=== PATIENT | male | born 1960 | race Hispanic/Latino ===

== ENCOUNTER 2018-11-11 19:56 | Emergency (ER) | payer BC, MEDICARE ==
[~2018-11-11] VITALS: Ht 177.8 cm; Wt 120.2 kg
[~2018-11-11 19:56] MED LIST: ACCUNEB0.63 MG/3 NEB; ACIPHEX20 MG; BICALUTAMIDE50 MG; COREG12.5 MG PO; COUMADIN10 MG; LOSARTAN POTAS100 MG; LOVENOX100 MG/ML; PROVENTIL HFA6.7 GM INH; ZOCOR40 MG
--- NOTE | 2018-11-11 21:01 | Diagnostic Imaging Report ---
EXAMINATION: CHEST 2 VIEWS INDICATION: ^SOB, H/O SARCOIDOSIS AND CHF COMPARISON: None FINDINGS: PA and lateral views TUBES and LINES: Median sternotomy wires and aortic valve prosthesis. LUNGS: Lungs are moderately inflated. Perihilar and show opacities with punctate calcified granulomas, consistent with known sarcoidosis. Elevation of the right minor fissure, related to scarring. Pulmonary venous congestion. PLEURA: No pleural effusion or pneumothorax. HEART AND MEDIASTINUM: Cardiac size is moderately enlarged. There are atherosclerotic calcifications within the tortuous aorta. BONES AND SOFT TISSUES: No acute osseous lesion. Soft tissues are unremarkable. UPPER ABDOMEN: No free air under the diaphragm. IMPRESSION: Moderate cardiomegaly. Chronic lung changes related to sarcoidosis. Central pulmonary venous congestion. Signed by: Dr. Humberto Gómez M.D. on 11/11/2018 8:57 PM
[2018-11-11] MEDS ORDERED: FUROSEMIDE40 MG PO (21:42)
[2018-11-11] MEDS ORDERED: BUPROPION XL150 MG PO (21:42)
[2018-11-11] MEDS ORDERED: DIGOXIN125 MCG PO (21:42)
[2018-11-11] MEDS ORDERED: ASPIR 8181 MG PO (21:42)
[2018-11-11] MEDS ORDERED: RANITIDINE HCL150 MG PO (21:42)
[2018-11-11] MEDS ORDERED: PREDNISONE10 MG PO (21:42)
[2018-11-11] MEDS ORDERED: WARFARIN SODIU2.5 MG PO ×2 (21:42)
[2018-11-11] MEDS ORDERED: LOSARTAN POTASS50 MG PO (21:42)
--- NOTE | 2018-11-11 22:10 | NUR ---
BLOOD REDRAWN AND SENT TO LAB
[2018-11-11 22:17] LABS: BASOPHILS % 0.3 % (0.0-1.0); EOSINOPHILS % 0.1 % (0.0-6.0); HEMATOCRIT 44.8 % (38.2-49.6); HEMOGLOBIN 15.7 g/dL (14.0-18.0); LYMPHOCYTES # (AUTO) 1.1 (1.0-3.2); LYMPHOCYTES % 11.9 % (18.0-39.1); MEAN CORPUSCULAR HEMOGLOBIN 33.1 pg (28-32); MEAN CORPUSCULAR VOLUME 94.5 fL (81-99); MONOCYTES # (AUTO) 0.9 (0.2-0.8); MONOCYTES % 9.9 % (4.4-11.3); NEUTROPHILS # (AUTO) 6.9 (2.1-6.9); NEUTROPHILS % 74.7 % (38.7-80.0); PLATELET COUNT 158 x10e3/uL (140-360); RED BLOOD COUNT 4.74 x10e6/uL (4.3-5.7); RED CELL DISTRIBUTION WIDTH 14.8 % (11.7-14.4)
[2018-11-11 22:22] LABS: INR 4.93
[2018-11-11 22:30] LABS: ALANINE AMINOTRANSFERASE 68 IU/L (0-55); ALBUMIN 3.3 g/dL (3.5-5.0); ALBUMIN/GLOBULIN RATIO 1.6 (0.8-2.0); ALKALINE PHOSPHATASE 97 IU/L (40-150); ANION GAP 13.6 mmol/L (8-16); BLOOD UREA NITROGEN 14 mg/dL (7-26); BUN/CREATININE RATIO 17 (6-25); CALCIUM 8.9 mg/dL (8.4-10.2); CARBON DIOXIDE 27 mmol/L (22-29); CHLORIDE 102 mmol/L (98-107); CREATINE KINASE 62 IU/L (30-200); CREATININE, SERUM 0.84 mg/dL (0.72-1.25); EST GLOMERULAR FILTRATION RATE > 60 ML/MIN (60-); GLUCOSE 118 mg/dL (74-118); POTASSIUM 3.6 mmol/L (3.5-5.1); SODIUM 139 mmol/L (136-145)
[2018-11-11 23:03] VITALS: BP 139/106
== END 2018-11-11 23:11 | disposition home or self-care (01) ==
LOC: ER 19:56
DX: R06.09 Other forms of dyspnea (principal); R60.0 Localized edema; I48.91 Unspecified atrial fibrillation; I50.9 Heart failure, unspecified; I10 Essential (primary) hypertension; E78.00 Pure hypercholesterolemia, unspecified; D86.9 Sarcoidosis, unspecified
CPT/HCPCS: 36415; 71046; 80053; 82550; 82553; 83880; 84484; 85025; 85610; 85730; 93005; 99284

== ENCOUNTER → 2018-11-18 | Outpatient (CLI) | payer MEDICARE, BC ==
[~2018-11-18] MED LIST changes: +ALBUTEROL/IPRATROPIUM 3 ML NEB ONE; +ASPIR 8181 MG PO; +BUPROPION XL150 MG PO; +DIGOXIN125 MCG PO; +FUROSEMIDE40 MG PO; +LOSARTAN POTASS50 MG PO; +PREDNISONE10 MG PO; +RANITIDINE HCL150 MG PO; +WARFARIN SODIU2.5 MG PO
== END ==
LOC: RESP 11:20
PROVIDERS: ATTEND Internal Medicine Pulmonary Disease
DX: D86.0 Sarcoidosis of lung (principal)
CPT/HCPCS: 94060; 94727; 94729

== ENCOUNTER 2021-01-16 21:53 | Emergency (ER) | payer MEDICARE, BC ==
[~2021-01-16] VITALS: Ht 177.8 cm; Wt 120.2 kg
[~2021-01-16 21:53] MED LIST changes: -ALBUTEROL/IPRATROPIUM 3 ML NEB ONE
[2021-01-16] MEDS ORDERED: ASPIRIN 81 MG CHEW TAB PO ONE (22:15)
[2021-01-16 22:36] LABS: BASOPHILS % 0.3 % (0.0-1.0); EOSINOPHILS # (AUTO) 0.2 (0.0-0.4); EOSINOPHILS % 2.5 % (0.0-6.0); HEMATOCRIT 48.8 % (38.2-49.6); HEMOGLOBIN 16.6 g/dL (14.0-18.0); LYMPHOCYTES # (AUTO) 1.1 (1.0-3.2); MEAN CORPUSCULAR HEMOGLOBIN 31.3 pg (28-32); MEAN CORPUSCULAR VOLUME 92.1 fL (81-99); MONOCYTES # (AUTO) 1.1 (0.2-0.8); MONOCYTES % 11.4 % (4.4-11.3); NEUTROPHILS # (AUTO) 6.7 (2.1-6.9); NEUTROPHILS % 73.4 % (38.7-80.0); PLATELET COUNT 208 x10e3/uL (140-360); RED CELL DISTRIBUTION WIDTH 13.6 % (11.7-14.4)
[2021-01-16 22:57] LABS: ALANINE AMINOTRANSFERASE 37 IU/L (0-55); ALBUMIN/GLOBULIN RATIO 1.1 (0.8-2.0); ALKALINE PHOSPHATASE 104 IU/L (40-150); ANION GAP 12.3 mmol/L (8-16); BLOOD UREA NITROGEN 19 mg/dL (7-26); BUN/CREATININE RATIO 19 (6-25); CALCIUM 9.2 mg/dL (8.4-10.2); CARBON DIOXIDE 25 mmol/L (22-29); CHLORIDE 101 mmol/L (98-107); CREATINE KINASE 108 IU/L (30-200); CREATININE, SERUM 1.01 mg/dL (0.72-1.25); EST GLOMERULAR FILTRATION RATE > 60 ML/MIN (60-); GLUCOSE 114 mg/dL (74-118); POTASSIUM 4.3 mmol/L (3.5-5.1); SODIUM 134 mmol/L (136-145)
[2021-01-17] MEDS ORDERED: ASPIRIN 81 MG CHEW TAB PO ONE (00:15)
[2021-01-17 00:45] LABS: CREATINE KINASE MB 0.7 ng/mL (0-5.0)
== END 2021-01-17 01:35 | disposition home or self-care (01) ==
LOC: ER 21:59
DX: R07.89 Other chest pain (principal); R06.02 Shortness of breath; I10 Essential (primary) hypertension; E78.5 Hyperlipidemia, unspecified; I48.91 Unspecified atrial fibrillation; I50.9 Heart failure, unspecified; K21.9 Gastro-esophageal reflux disease without esophagitis
CPT/HCPCS: 36415; 71045; 80053; 82550; 82553; 83880; 84484; 85025; 85379; 93005; 99284

== ENCOUNTER → 2021-03-08 | Day surgery (SDC) | payer MEDICARE, BC ==
[2021-03-06 09:07] LABS: BASOPHILS % 0.4 % (0.0-1.0); EOSINOPHILS # (AUTO) 0.3 (0.0-0.4); EOSINOPHILS % 3.7 % (0.0-6.0); HEMATOCRIT 48.4 % (38.2-49.6); HEMOGLOBIN 16.6 g/dL (14.0-18.0); LYMPHOCYTES # (AUTO) 1.2 (1.0-3.2); LYMPHOCYTES % 15.5 % (18.0-39.1); MEAN CORPUSCULAR HEMOGLOBIN 31.8 pg (28-32); MEAN CORPUSCULAR HGB CONC 34.3 g/dL (31-35); MEAN CORPUSCULAR VOLUME 92.7 fL (81-99); MONOCYTES % 13.2 % (4.4-11.3); NEUTROPHILS % 66.7 % (38.7-80.0); PLATELET COUNT 178 x10e3/uL (140-360); RED BLOOD COUNT 5.22 x10e6/uL (4.3-5.7); RED CELL DISTRIBUTION WIDTH 13.7 % (11.7-14.4)
[2021-03-06 09:18] LABS: INR 2.55; PROTHROMBIN TIME 28.2 seconds (11.9-14.5)
[2021-03-06 09:21] LABS: ANION GAP 11.2 mmol/L (8-16); BLOOD UREA NITROGEN 13 mg/dL (7-26); BUN/CREATININE RATIO 14 (6-25); CARBON DIOXIDE 25 mmol/L (22-29); CHLORIDE 106 mmol/L (98-107); EST GLOMERULAR FILTRATION RATE > 60 ML/MIN (60-); GLUCOSE 91 mg/dL (74-118); POTASSIUM 4.2 mmol/L (3.5-5.1); SODIUM 138 mmol/L (136-145)
[~2021-03-08] VITALS: Ht 175.3 cm; Wt 122.5 kg
[2021-03-08] VITALS (14 sets, daily range): BP systolic 127–154; BP diastolic 77–94
[~2021-03-08] MED LIST changes: +ATORVASTATIN CA20 MG PO; +BUPROPION HCL100 MG PO; +CEFAZOLIN SOD 2 GM/NS 50ML 50 ML IV ONE; +CLEOCIN40 GM TOP; +FAMOTIDINE20 MG PO; +FENTANYL CITRATE/PF 100MCG/2 ML INJ ONE; +GENTAMICIN SULFATE 40 MG/ML 2 ML VIAL ONE; +HYDROCODONE/APAP 5MG-325MG TAB ONE; +HYDROXYZINE HCL10 MG PO; +LIDOCAINE 1% W/EPINEPHRINE 20 ML VIAL ONE; +LOSARTAN POTASS25 MG PO; +METOPROLOL SUCC50 MG PO; +MIDAZOLAM HCL 2 MG/2 ML VIAL ONE; +OXYBUTYNIN CHLOR5 MG PO; +REVATIO20 MG PO; +SODIUM CHLORIDE 0.9% 1000ML 2,000 ML ONE; +SODIUM CHLORIDE 0.9% 500ML 500 ML ONE; +VANCOMYCIN 1GM/NS 250 ML 250 ML ONE
== END | disposition home or self-care (01) ==
LOC: CATH LAB 06:39
PROVIDERS: ATTEND Internal Medicine
DX: I11.0 Hypertensive heart disease with heart failure (principal); I50.42 Chronic combined systolic (congestive) and diastolic (congestive) heart failure; I42.8 Other cardiomyopathies; I49.5 Sick sinus syndrome; I48.11 Longstanding persistent atrial fibrillation; I25.10 Atherosclerotic heart disease of native coronary artery without angina pectoris; E78.5 Hyperlipidemia, unspecified; Z79.01 Long term (current) use of anticoagulants; Z79.82 Long term (current) use of aspirin
CPT/HCPCS: 33225; 33249; 36415; 71045; 80048; 85025; 85610; C1721; C1769 ×2; C1895; C1900; J0690; J1580; J2250; J3010; J3370; J7030; J7040; 99152; 99153

== ENCOUNTER 2022-03-30 06:06 | Observation (INO) | payer MEDICARE, BC ==
[~2022-03-30] VITALS: Ht 175.3 cm; Wt 128.4 kg
[~2022-03-30 06:06] MED LIST changes: -CEFAZOLIN SOD 2 GM/NS 50ML 50 ML IV ONE; -FENTANYL CITRATE/PF 100MCG/2 ML INJ ONE; -GENTAMICIN SULFATE 40 MG/ML 2 ML VIAL ONE; -HYDROCODONE/APAP 5MG-325MG TAB ONE; -LIDOCAINE 1% W/EPINEPHRINE 20 ML VIAL ONE; -MIDAZOLAM HCL 2 MG/2 ML VIAL ONE; -SODIUM CHLORIDE 0.9% 1000ML 2,000 ML ONE; -SODIUM CHLORIDE 0.9% 500ML 500 ML ONE; -VANCOMYCIN 1GM/NS 250 ML 250 ML ONE
[2022-03-30] MEDS ORDERED: SODIUM CHLORIDE 0.9% 500ML 500 ML IV ONE (06:30)
[2022-03-30] MEDS ORDERED: LOSARTAN POTASSIUM 25 MG TAB PO ONE (06:30)
[2022-03-30 07:01] LABS: BASOPHILS % 0.2 % (0.0-1.0); EOSINOPHILS # (AUTO) 0.2 (0.0-0.4); HEMATOCRIT 51.5 % (38.2-49.6); HEMOGLOBIN 17.4 g/dL (14.0-18.0); LYMPHOCYTES # (AUTO) 1.5 (1.0-3.2); LYMPHOCYTES % 15.5 % (18.0-39.1); MEAN CORPUSCULAR HEMOGLOBIN 32.5 pg (28-32); MEAN CORPUSCULAR HGB CONC 33.8 g/dL (31-35); MEAN CORPUSCULAR VOLUME 96.3 fL (81-99); NEUTROPHILS # (AUTO) 6.8 (2.1-6.9); NEUTROPHILS % 71.9 % (38.7-80.0); PLATELET COUNT 184 x10e3/uL (140-360); RED BLOOD COUNT 5.35 x10e6/uL (4.3-5.7); RED CELL DISTRIBUTION WIDTH 14.1 % (11.7-14.4)
[2022-03-30 07:05] LABS: CLARITY,URINE CLEAR (CLEAR); COLOR,URINE YELLOW (YELLOW); LEUKOCYTE ESTERASE ,URINE NEGATIVE (NEGATIVE)
[2022-03-30 07:06] LABS: KETONES,URINE NEGATIVE (NEGATIVE); NITRITE,URINE NEGATIVE (NEGATIVE); PROTEIN,URINE DIPSTICK 1+ (NEGATIVE); URINE UROBILINOGEN 1 mg/dL (0.2 - 1)
[2022-03-30 07:20] LABS: BACTERIA,URINE FEW /HPF; EPITHELIAL CELLS,URINE FEW /LPF; MUCUS,URINE FEW (RARE); RBC,URINE 0-5 /HPF (0-5); WBC,URINE (MAN) 0-5 /HPF (0-5)
[2022-03-30 07:23] LABS: ALANINE AMINOTRANSFERASE 24 IU/L (0-55); ALBUMIN 3.6 g/dL (3.5-5.0); ALBUMIN/GLOBULIN RATIO 0.7 (0.8-2.0); ALKALINE PHOSPHATASE 120 IU/L (40-150); BLOOD UREA NITROGEN 8 mg/dL (7-26); BUN/CREATININE RATIO 9 (6-25); CALCIUM 9.5 mg/dL (8.4-10.2); CREATINE KINASE 72 IU/L (30-200); GLUCOSE 89 mg/dL (74-118); INR 2.11; PROTHROMBIN TIME 25.3 seconds (11.9-14.5)
[2022-03-30 07:24] LABS: PARTIAL THROMBOPLASTIN TIME 44.5 seconds (23.8-35.5)
[2022-03-30 07:41] LABS: ANION GAP 13.7 mmol/L (8-16); CARBON DIOXIDE 27 mmol/L (22-29); CHLORIDE 104 mmol/L (98-107); POTASSIUM 4.7 mmol/L (3.5-5.1); SODIUM 140 mmol/L (136-145)
[2022-03-30] MEDS ORDERED: ONDANSETRON HCL INJ 2MG/ML 2ML 2 MG/ML VIAL IV PRN (08:30)
[2022-03-30] MEDS ORDERED: SODIUM CHLORIDE 0.9% 100 ML ONE (09:21)
[2022-03-30] MEDS ORDERED: IOPAMIDOL 370 MG/ML 100 ML INFUS..BTL INJ ONE (09:21)
[2022-03-30] MEDS: FAMOTIDINE 20 MG/2 ML VIAL IV SCH ×2 (10:00→21:19)
[2022-03-30 10:28] VITALS: BP 160/95
[2022-03-30 11:50] VITALS: BP 160/95
[2022-03-30 12:23] VITALS: BP 165/76
[2022-03-30 12:44] VITALS: BP 160/95
[2022-03-30 16:27] LABS: CREATINE KINASE 67 IU/L (30-200)
[2022-03-30 16:50] VITALS: BP 146/97
[2022-03-30] MEDS ORDERED: WARFARIN SOD 2.5 MG TAB PO SCH (19:15)
[2022-03-30] MEDS ORDERED: HYDROXYZINE HCL 10 MG TAB PO PRN (19:15)
[2022-03-30 20:00] VITALS: BP 151/81
[2022-03-30] MEDS ORDERED: METOPROLOL SUCCINATE 50 MG TAB XL PO SCH (21:00)
[2022-03-31] VITALS: BP 136/79
[2022-03-31 01:10] LABS: CREATINE KINASE 55 IU/L (30-200)
[2022-03-31 04:00] VITALS: BP 115/80
[2022-03-31 08:16] VITALS: BP 159/91
[2022-03-31] MEDS ORDERED: LOSARTAN POTASSIUM 25 MG TAB PO SCH (09:00)
[2022-03-31] MEDS ORDERED: ATORVASTATIN 40 MG TAB PO SCH (09:00)
[2022-03-31] MEDS ORDERED: FAMOTIDINE 20 MG TAB PO SCH (09:00)
[2022-03-31] MEDS ORDERED: BUPROPION HCL 100 MG TAB PO SCH (09:00)
[2022-03-31] MEDS ORDERED: LASIX20 MG PO (09:22)
[2022-03-31] MEDS: FAMOTIDINE 20 MG/2 ML VIAL IV SCH (09:35)
[2022-03-31 09:51] VITALS: BP 159/91
[2022-03-31 11:24] LABS: CREATINE KINASE 65 IU/L (30-200)
== END 2022-03-31 10:10 | disposition home or self-care (01) ==
LOC: ER 06:15 → ERHOLD 08:31 → MED/SURG2 10:28
PROVIDERS: ADMIT Family Medicine; ATTEND Family Medicine
DX: R55 Syncope and collapse (principal); R42 Dizziness and giddiness; I11.0 Hypertensive heart disease with heart failure; I50.22 Chronic systolic (congestive) heart failure; E78.00 Pure hypercholesterolemia, unspecified; Z95.810 Presence of automatic (implantable) cardiac defibrillator; Z95.2 Presence of prosthetic heart valve; Z79.01 Long term (current) use of anticoagulants; Z88.8 Allergy status to other drugs, medicaments and biological substances; R19.7 Diarrhea, unspecified; K21.9 Gastro-esophageal reflux disease without esophagitis
CPT/HCPCS: 0223U; 36415; 70450; 70496; 71045; 80053; 81001; 82550 ×2; 82553 ×2; 83735; 83880; 84484 ×2; 85025; 85610; 85730; 87086; 87186; 93005; 93306; 93880; 94799; 99284; G0378 ×2; J7040; J7050; Q9967

== ENCOUNTER 2024-11-29 04:22 | Emergency (ER) | payer MEDICARE, BC ==
[~2024-11-29] VITALS: Ht 175.3 cm; Wt 128.4 kg
[~2024-11-29 04:22] MED LIST changes: +LASIX20 MG PO
[2024-11-29 04:46] VITALS: PULSE 80; RESP 20; TEMP 97.9; O2SAT 99
[2024-11-29 05:42] LABS: BASOPHILS % 0.2 % (0.0-1.0); EOSINOPHILS # (AUTO) 0.2 (0.0-0.4); EOSINOPHILS % 2.4 % (0.0-6.0); HEMATOCRIT 49.8 % (38.2-49.6); HEMOGLOBIN 17.6 g/dL (14.0-18.0); LYMPHOCYTES # (AUTO) 1.4 (1.0-3.2); LYMPHOCYTES % 16.9 % (18.0-39.1); MEAN CORPUSCULAR HEMOGLOBIN 32.5 pg (28-32); MEAN CORPUSCULAR HGB CONC 35.3 g/dL (31-35); MEAN CORPUSCULAR VOLUME 91.9 fL (81-99); MONOCYTES % 11.9 % (4.4-11.3); NEUTROPHILS # (AUTO) 5.5 (2.1-6.9); NEUTROPHILS % 68.2 % (38.7-80.0); PLATELET COUNT 164 x10e3/uL (140-360); RED BLOOD COUNT 5.42 x10e6/uL (4.3-5.7); RED CELL DISTRIBUTION WIDTH 13.8 % (11.7-14.4); WHITE BLOOD COUNT 8.06 x10e3/uL (4.8-10.8)
[2024-11-29 06:06] LABS: ALANINE AMINOTRANSFERASE 25 IU/L (0-55); ALBUMIN 3.9 g/dL (3.5-5.0); ALBUMIN/GLOBULIN RATIO 1.1 (0.8-2.0); ALKALINE PHOSPHATASE 135 IU/L (40-150); ANION GAP 11.9 mmol/L (8-16); BILIRUBIN,TOTAL 1.5 mg/dL (0.2-1.2); BLOOD UREA NITROGEN 8 mg/dL (7-26); BUN/CREATININE RATIO 8 (6-25); CALCIUM 9.8 mg/dL (8.4-10.2); CARBON DIOXIDE 27 mmol/L (22-29); CHLORIDE 104 mmol/L (98-107); CREATINE KINASE 80 IU/L (30-200); CREATININE, SERUM 0.96 mg/dL (0.72-1.25); EST GLOMERULAR FILTRATION RATE 87 ML/MIN (>=60); GLUCOSE 83 mg/dL (74-118); POTASSIUM 3.9 mmol/L (3.5-5.1); SODIUM 139 mmol/L (136-145); TOTAL PROTEIN 7.5 g/dL (6.5-8.1)
[2024-11-29 06:14] LABS: TROPONIN I < 0.001 ng/mL (0-0.300)
[2024-11-29] MEDS ORDERED: IOPAMIDOL 370 MG/ML 100 ML INFUS..BTL INJ ONE (07:03)
== END 2024-11-29 08:40 | disposition home or self-care (01) ==
LOC: ER 04:36
DX: R29.810 Facial weakness (principal); I10 Essential (primary) hypertension; I50.9 Heart failure, unspecified; I48.91 Unspecified atrial fibrillation; E78.5 Hyperlipidemia, unspecified; K21.9 Gastro-esophageal reflux disease without esophagitis; D86.9 Sarcoidosis, unspecified; R94.31 Abnormal electrocardiogram [ECG] [EKG]; Z85.46 Personal history of malignant neoplasm of prostate; Z95.4 Presence of other heart-valve replacement; Z95.810 Presence of automatic (implantable) cardiac defibrillator
CPT/HCPCS: 36415; 70496; 70498; 71045; 80053; 82550; 83690; 83880; 84484; 85025; 93005; 99284; Q9967